=== PATIENT | male | born 1970 | race Caucasian/White ===

== ENCOUNTER 2024-04-10 16:50 | Emergency (ER) | payer OTHER, BC, SELFPAY ==
--- NOTE | ~2024-04-10 | XR_ITS ---
EXAMINATION: XR HAND, RIGHT CLINICAL INFORMATION: Slice along the third and fourth digits from work machinery. Unable to straighten fingers completely COMPARISON: 05/26/2013 TECHNIQUE: PA, lateral, and oblique views of the right hand. FINDINGS: Bones are normal anatomic alignment with no acute fracture or dislocation. Mild degenerative changes at the first MTP joint. Degenerative changes along the radiocarpal joint space. No bony destructive lesions or periosteal reaction. No radiopaque foreign body XR/XR hand RT min 3V IMPRESSION: Mild degenerative changes but no acute fracture or dislocation.
[2024-04-10 17:19] VITALS: BP 137/81; PULSE 66; RESP 18; TEMP 36.2; O2SAT 97; BMI 28.0
--- NOTE | 2024-04-10 17:25 | ED_ITS ---
HPI - General Adult General Chief complaint: Wound/Laceration Stated complaint: finger lac on r hand, work inj Time Seen by Provider: 04/10/24 21:08 History of Present Illness ED Provider: Philip MARES narrative: The patient is a 53-year-old male who was at work when he accidentally got his 3rd and 4th fingers of the right hand caught in an overhead door. He sustained lacerations to the palmar aspect of both of these fingers near the the IP joints. He was bleeding and came to the emergency room. Related Data Allergies Allergy/AdvReac Type Severity Reaction Status Date / Time acetaminophen [Percocet] Allergy Unknown itching Verified 04/10/24 17:22 oxycodone [Percocet] Allergy Unknown itching Verified 04/10/24 17:22 Review of Systems Review of Systems: Yes all other systems are reviewed and are negative [facility] Social History Social History Advance Directives: No Advance Directives Information Provided: No Do you have a plan to hurt others: No Plan Physical Exam ED Vital Signs: Vital Signs - 24 hr 04/10/24 17:19 04/10/24 21:49 Temperature 97.2 F 97.3 F Pulse Rate 66 59 Respiratory Rate 18 18 Blood Pressure 137/81 138/101 H Pulse Oximetry 97 98 Oxygen Delivery Method Room Air Room Air BMI result Body Mass Index 28.0 Const Other: The patient looks as though he has an ordinarily healthy 53-year-old male. He is awake and alert, pleasant cooperative. In no distress. Skin Other: The patient has 2 lacerations on the palmar aspect of the fingers of the right hand. He has a laceration of approximately 2.5 cm in length across the distal palmar finger near the crease of the PIP joint. This is a shallow laceration with a flap like component. The base of the flap is at the distal side of the laceration. Second laceration is a 2 cm laceration on the distal aspect of the right ring finger. The laceration is transverse and just distal to the crease of the PIP joint and parallel to the crease. This laceration is not a flap laceration. Neither laceration extends to the deeper structures. Neuro Other: The patient is awake and alert and appropriate. Sensation is intact. Extrem Other: The patient has lacerations at the distal portion of the right middle and ring fingers. There is intact flexor function of both of these fingers Course Course Course Narrative: RME performed by Sadie Goncalves PA-C. Patient is a 53 year old assigned male at presenting to the emergency department with right 3rd and 4th finger pain. Patient states he got his fingers stuck in an overhead door. Detailed physical exam and review of systems are deferred to the zoo director. Imaging ordered. Patient placed back in the waiting room pending room availability and results. Medications Administered Discontinued Medications Generic Name Dose Route Start Last Admin Trade Name Shemar PRN Reason Stop Dose Admin Lidocaine HCl 10 ml 04/10/24 21:12 04/10/24 21:34 Lidocaine Hcl 1 % 10 Ml Vial INFILTRATI 04/10/24 21:13 10 ml ONCE ONE Administration Procedures Laceration Laceration 1: Site: hand Side (If applicable): right Size (cm): 2.5 Description: linear and flap Depth: simple, single layer Local Anesthetic: lidocaine 1% Amount of anesthesia used (mL): 7 Pre-repair: wound explored, irrigated extensively and deep structures intact Skin layer closed with: nylon Size (cm): 5-0 Number of sutures: 5 Technique: simple, interrupted Laceration 2: Site: hand Side (If applicable): right Size (cm): 2 Description: linear Depth: simple, single layer Local Anesthetic: lidocaine 1% Amount of anesthesia used (mL): 7 Pre-repair: wound explored, irrigated extensively and deep structures intact Skin layer closed with: nylon Size (cm): 5-0 Number of sutures: 4 Technique: simple, interrupted Medical Decision Making Medical Decision Making MDM Narrative: The patient has lacerations on the palmar aspect of the right middle and ring fingers. This was a crush type injury. An x-ray is unremarkable. I do not feel there is any underlying injury to the flexor function of the DIP joints. The patient is up-to-date on tetanus. The hand was prepped with Betadine. I have administered digital block at the base of each of the middle and ring fingers. This was with 1% plain lidocaine using a 27 gauge needle. Both wounds were explored and copiously irrigated. The middle finger laceration was closed with 5 simple interrupted stitches. The ring finger laceration was closed with 4 simple interrupted stitches. The patient was given a single prophylactic dose of 1 g of cephalexin orally. Wound care instructions were reviewed with the patient. He will be discharged to have stitches removed in 10 days. Discharge Plan Discharge Clinical Impression: Laceration of right middle finger, Laceration of right ring finger Patient Disposition: Home, Self-Care Instructions: Finger Laceration (ED) Additional Instructions: Have 5 stitches in the wound on your middle finger and 4 stitches in the wound on your ring finger. Please do your best to keep the wounds clean and dry. Cover with a Band-Aid. Use bacitracin with Band-Aid changes for the 1st 2 days. After that you can stop the bacitracin. Please use the right hand very gently. It would be possible to rip the stitches out if you put much stitches. Please contact your regular doctor's office for suture removal in 10 days' time. Return to the emergency room you have any concerns about the wounds with the possibility of an infection. Referrals: Vincent Gipson MD [Primary Care Provider] - (Suture removal) Print Language: Chadian
[2024-04-10] MEDS: Lidocaine HCl 1 % 10 ML VIAL INFILTRATI (21:34)
[2024-04-10 21:49] VITALS: BP 138/101; PULSE 59; RESP 18; TEMP 36.3; O2SAT 98
[2024-04-10] MEDS: cephALEXin 500 MG CAPSULE 1000 MG PO (22:05)
[2024-04-10 22:15] VITALS: BP 138/101; PULSE 59; RESP 18; TEMP 36.3; O2SAT 98
[2024-04-10] MEDS: Lidocaine HCl 1 % 20 ML VIAL 5 ML INFILTRATI (22:15)
== END 2024-04-10 22:15 | disposition home or self-care (01) ==
PROVIDERS: Emergency Provider Emergency Medicine; PCP Internal Medicine
DX: S61.212A Laceration without foreign body of right middle finger without damage to nail, initial encounter (principal); S61.214A Laceration without foreign body of right ring finger without damage to nail, initial encounter; X58.XXXA Exposure to other specified factors, initial encounter; W26.9XXA Contact with unspecified sharp object(s), initial encounter; Y93.89 Activity, other specified; Y92.89 Other specified places as the place of occurrence of the external cause; Y99.0 Civilian activity done for income or pay; Z79.899 Other long term (current) drug therapy
CPT/HCPCS: 12002; 12042; 73130; 99283; 99284